=== PATIENT | male | born 1960 | race Hispanic/Latino ===

== ENCOUNTER 2022-05-26 09:18 | Emergency (ER) | payer OTHER ==
[2022-05-26 10:14] LABS: #Basophils 0.1 thou/uL (0.0-0.2); #Eosinphils 0.1 thou/uL (0.0-0.7); #Lymphocytes 2.5 thou/uL (1.20-3.40); #Monocytes 0.4 thou/uL (0.11-0.59); #Neutrophils 3.2 thou/uL (1.40-6.50); %Basophils 1.9 % (0.0-1.0); %Eosinophils 1.7 % (0.0-10.0); %Lymphocytes 39.6 % (21.0-51.0); %Monocytes 5.8 % (0.0-10.0); Hemoglobin 14.7 g/dL (14.0-18.0); Mean Corpuscular Hemoglobin 31.8 pg (27.0-31.0); Mean Corpuscular Volume 96.4 fL (78.0-98.0); Mean Platelet Volume 7.3 fL (7.4-10.4); Platelet Count 336 thou/uL (130-400); Red Blood Cell (RBC) Count 4.62 mill/uL (4.70-6.10); White Blood Cell (WBC) Count 6.3 thou/uL (4.8-10.8)
[2022-05-26 10:29] LABS: ALT (SGPT) 9 U/L (8-55); AST (SGOT) 15 U/L (5-34); Alkaline Phosphatase 89 U/L (40-110); Anion Gap 8 mmol/L (10-20); BUN (Urea Nitrogen) 17 mg/dL (8.4-25.7); Bilirubin, Total 0.5 mg/dL (0.2-1.2); Calc. Creatinine Clearance 0 mL/min (70-130); Calcium 9.3 mg/dL (7.8-10.44); Carbon Dioxide 32 mmol/L (22-29); Chloride 103 mmol/L (98-107); Estimated GFR 79; Glucose 89 mg/dL (70-105); Potassium 4.7 mmol/L (3.5-5.1); Sodium 138 mmol/L (136-145)
[2022-05-26] MEDS ORDERED: Dexamethasone 10 MG/ML VIAL ONE (12:38)
== END 2022-05-26 12:57 | disposition home or self-care (01) ==
LOC: ERS 09:18
DX: M48.061 Spinal stenosis, lumbar region without neurogenic claudication (principal); E78.00 Pure hypercholesterolemia, unspecified; I10 Essential (primary) hypertension
CPT/HCPCS: 36415; 72131; 80053; 85025; 86140; 96374; J1100

== ENCOUNTER 2022-09-07 12:21 | Outpatient (CLI) | payer OTHER | END 2022-09-07 12:22 | disposition home or self-care (01) | LOC: TBSIIMAG 12:21 | PROVIDERS: ATTEND Neurological Surgery | DX: M43.16 Spondylolisthesis, lumbar region (principal); M47.816 Spondylosis without myelopathy or radiculopathy, lumbar region; M51.36 Other intervertebral disc degeneration, lumbar region; M48.061 Spinal stenosis, lumbar region without neurogenic claudication | CPT/HCPCS: 72148 ==

== ENCOUNTER 2023-03-19 07:52 | Day surgery (SDC) | payer OTHER ==
[2023-03-15 14:53] VITALS: BMI 36.2
== END 2023-03-19 09:00 ==
LOC: SDC 07:52
PROVIDERS: ATTEND Neurological Surgery
DX: M43.16 Spondylolisthesis, lumbar region (principal); Z53.8 Procedure and treatment not carried out for other reasons
CPT/HCPCS: 93005; 93010

== ENCOUNTER 2023-04-30 07:51 | Inpatient (IN) | payer OTHER ==
[2023-04-27 09:28] VITALS: BMI 36.2
[2023-04-30 08:27] LABS: #Eosinphils 0.2 thou/uL (0.0-0.7); #Monocytes 0.6 thou/uL (0.11-0.59); #Neutrophils 3.8 thou/uL (1.40-6.50); %Basophils 0.4 % (0.0-1.0); %Eosinophils 2.6 % (0.0-10.0); %Lymphocytes 39.6 % (21.0-51.0); %Monocytes 7.8 % (0.0-10.0); %Neutrophils 49.3 % (42.0-75.0); Hematocrit 40.4 % (42.0-52.0); Hemoglobin 13.6 g/dL (14.0-18.0); Mean Corpuscular HGB CONC 33.7 g/dL (32.0-36.0); Mean Platelet Volume 10.3 fL (7.4-10.4); Platelet Count 281 10x3/uL (130-400); RBC Distribution Width 12.7 % (11.5-14.5); Red Blood Cell (RBC) Count 4.39 mill/uL (4.70-6.10); White Blood Cell (WBC) Count 7.7 10x3/uL (4.8-10.8)
[2023-04-30 08:50] LABS: Anion Gap 11 mmol/L (10-20); BUN (Urea Nitrogen) 12 mg/dL (8.4-25.7); Calc. Creatinine Clearance 149 mL/min (70-130); Calcium 9.2 mg/dL (7.8-10.44); Carbon Dioxide 29 mmol/L (22-29); Chloride 105 mmol/L (98-107); Estimated GFR 98; Glucose 90 mg/dL (70-105); Potassium 4.2 mmol/L (3.5-5.1); Sodium 141 mmol/L (136-145)
[2023-04-30] MEDS ORDERED: fentaNYL PF 100 MCG/2 ML SYRINGE ONE (11:13)
[2023-04-30] MEDS ORDERED: Sodium Chloride 0.9% 100 ML ONE (11:16)
[2023-04-30] MEDS ORDERED: CEFAZOLIN 2 GM VIAL ONE (11:16)
[2023-04-30] MEDS ORDERED: SUGAMMADEX SODIUM 200 MG/2 ML VIAL ONE (11:20)
[2023-04-30] MEDS ORDERED: Sevoflurane 250 ML INH ANEST BOTTLE ONE (11:20)
[2023-04-30] MEDS ORDERED: Dexamethasone 20 MG/5 ML VIAL ONE (11:27)
[2023-04-30] MEDS ORDERED: Lidocaine 1% PF 5 ML VIAL ONE (11:27)
[2023-04-30] MEDS ORDERED: PROPOFOL 200 MG/20 ML VIAL ONE (11:27)
[2023-04-30] MEDS ORDERED: Rocuronium Bromide 10 MG/ML (10ML VIAL) ONE (11:27)
[2023-04-30] MEDS ORDERED: Glycopyrrolate 0.2 MG/ML 5 ML SYRINGE ONE (11:27)
[2023-04-30] MEDS ORDERED: Ketorolac Tromethamine 30 MG/ML VIAL ONE (11:27)
[2023-04-30] MEDS ORDERED: Ondansetron PF 4 MG/2 ML Vial ONE (11:27)
[2023-04-30] MEDS ORDERED: ePHEDrine Sulfate 50 MG/10 ML VIAL ONE (11:27)
[2023-04-30] MEDS ORDERED: NEOSTIGMINE 3 MG/3 ML SYR 3 MG/3 ML SYRINGE ONE (11:27)
[2023-04-30] MEDS ORDERED: Vancomycin 1 GM VIAL ONE (11:58)
[2023-04-30] MEDS ORDERED: Meperidine HCl/PF 25 MG/ML VIAL SLOW IVP PRN (12:49)
[2023-04-30] MEDS ORDERED: Promethazine HCl 25 MG/ML VIAL IM PRN (12:49)
[2023-04-30] MEDS ORDERED: HYDROmorphone 2 MG/ML VIAL SLOW IVP PRN (12:49)
[2023-04-30] MEDS ORDERED: Ondansetron HCl/PF 4 MG/2 ML Vial IVP PRN (12:49)
[2023-04-30] MEDS ORDERED: Milk Of Magnesia 30 ML UDCUP PO PRN (12:51)
[2023-04-30] MEDS ORDERED: Ondansetron PF 4 MG/2 ML Vial IVP PRN (12:51)
[2023-04-30] MEDS ORDERED: Cyclobenzaprine 10 MG TAB PO PRN (12:51)
[2023-04-30] MEDS ORDERED: Acetaminophen 325 MG TAB PO PRN (12:51)
[2023-04-30] MEDS ORDERED: Morphine 2 MG/ML VIAL SLOW IVP PRN (12:51)
[2023-04-30] MEDS ORDERED: Promethazine 25 MG TAB PO PRN (12:51)
[2023-04-30] MEDS ORDERED: diphenhydrAMINE 50 MG/ML VIAL IVP PRN (12:51)
[2023-04-30] MEDS ORDERED: Acetaminophen/Codeine 30-300mg Tablet PO PRN (12:51)
[2023-04-30] MEDS ORDERED: Mag-Al 1200 mg/1200 mg/30 ML UDCUP PO PRN (12:51)
[2023-04-30] MEDS ORDERED: HYDROmorphone 0.5 MG/0.5 ML SYRINGE ONE ×4 (13:21→15:09)
[2023-04-30] MEDS ORDERED: fentaNYL 50 mcg/mL 1 mL Vial ONE ×3 (13:21→15:09)
[2023-04-30] MEDS: Sodium Chloride 0.9% 1,000 ML IV SCH (18:06)
[2023-04-30] MEDS: CEFAZOLIN 2 GM in Sodium Chloride 0.9% 100 ML IVPB SCH (19:54)
[2023-05-01] MEDS: Acetaminophen/Codeine 30-300mg Tablet PO PRN ×3 (00:10→13:08)
[2023-05-01] MEDS: CEFAZOLIN 2 GM in Sodium Chloride 0.9% 100 ML IVPB SCH (04:31)
[2023-05-01] MEDS: Sodium Chloride 0.9% 1,000 ML IV SCH ×3 (04:39→21:20)
[2023-05-01] MEDS: Amlodipine 5 MG TAB PO SCH (08:17)
[2023-05-01] MEDS: traMADol HCl 50 MG TAB PO PRN (20:43)
[2023-05-02] MEDS: Sodium Chloride 0.9% 1,000 ML IV SCH ×2 (06:00→16:39)
[2023-05-02] MEDS: traMADol HCl 50 MG TAB PO PRN (06:01)
[2023-05-02] MEDS: Amlodipine 5 MG TAB PO SCH (09:10)
[2023-05-02] MEDS: Acetaminophen/Codeine 30-300mg Tablet PO PRN ×2 (09:11→21:24)
[2023-05-03] MEDS: Amlodipine 5 MG TAB PO SCH (08:16)
[2023-05-03] MEDS: Acetaminophen/Codeine 30-300mg Tablet PO PRN (08:16)
[2023-05-03] MEDS: Sodium Chloride 0.9% 1,000 ML IV SCH (08:19)
[2023-05-03 10:58] VITALS: BP 138/83; TEMP 97.7
== END 2023-05-03 11:36 | DRG 460 ==
LOC: SDC 07:51 → EEVIPCON 07:51 → T4-B 12:51 → OBSVTOIN 05-01 12:38
PROVIDERS: ADMIT Neurological Surgery; ATTEND Neurological Surgery
PROC: 01NB0ZZ Release Lumbar Nerve, Open Approach (ICD-10-PCS; principal; 2023-04-30)
PROC: 0SG0071 Fusion of Lumbar Vertebral Joint with Autologous Tissue Substitute, Posterior Approach, Posterior Column, Open Approach (ICD-10-PCS; 2023-04-30)
DX: M43.16 Spondylolisthesis, lumbar region (principal); M48.061 Spinal stenosis, lumbar region without neurogenic claudication
CPT/HCPCS: 80048; 85025; C1713; C1889; J1100; J1170; J1885; J2272; J2405; J2704; J3010; J3370; J3490; J7050

== ENCOUNTER 2023-06-20 09:01 | Outpatient (CLI) | payer OTHER | END 2023-06-20 09:02 | disposition home or self-care (01) | LOC: RAD 09:01 | PROVIDERS: ATTEND Neurological Surgery | DX: M43.16 Spondylolisthesis, lumbar region (principal); M47.816 Spondylosis without myelopathy or radiculopathy, lumbar region; M43.17 Spondylolisthesis, lumbosacral region; Z98.890 Other specified postprocedural states | CPT/HCPCS: 72100 ==